=== PATIENT | female | born 1960 | race Caucasian/White ===

== ENCOUNTER 2020-12-15 06:00 | Outpatient (RCR) | payer BC, SELFPAY | END 2021-01-03 23:59 | disposition home or self-care (01) | LOC: TPT 06:00 | PROVIDERS: PCP Internal Medicine Cardiovascular Disease; Visit Provider Student in an Organized Health Care Education/Training Program | DX: Z47.89 Encounter for other orthopedic aftercare (principal) | CPT/HCPCS: 97110; 97140; 97162; G0283 ==

== ENCOUNTER 2021-01-04 06:00 | Outpatient (RCR) | payer BC, SELFPAY | END 2021-02-02 23:59 | disposition home or self-care (01) | LOC: TPT 06:00 | PROVIDERS: PCP Internal Medicine Cardiovascular Disease; Visit Provider Student in an Organized Health Care Education/Training Program | DX: Z47.89 Encounter for other orthopedic aftercare (principal) | CPT/HCPCS: 97032; 97110; 97140; G0283 ==

== ENCOUNTER 2021-02-03 06:00 | Outpatient (RCR) | payer BC, SELFPAY | END 2021-03-05 23:59 | disposition home or self-care (01) | LOC: TPT 06:00 | PROVIDERS: PCP Internal Medicine Cardiovascular Disease; Visit Provider Student in an Organized Health Care Education/Training Program | DX: Z47.89 Encounter for other orthopedic aftercare (principal) | CPT/HCPCS: 97032; 97110 ==

== ENCOUNTER → 2021-04-12 17:52 | Outpatient (BNVA) | payer BC, SELFPAY | PROVIDERS: PCP Internal Medicine Cardiovascular Disease; Visit Provider Family Medicine | DX: K21.9 Gastro-esophageal reflux disease without esophagitis (principal); F32.9 Major depressive disorder, single episode, unspecified; E03.9 Hypothyroidism, unspecified; I10 Essential (primary) hypertension | CPT/HCPCS: 80053; 80061; 84443; 85025 ==

== ENCOUNTER → 2021-05-15 08:45 | Outpatient (BNVA) | payer BC, SELFPAY | PROVIDERS: Visit Provider Family Medicine | DX: R30.0 Dysuria (principal); K21.9 Gastro-esophageal reflux disease without esophagitis; I10 Essential (primary) hypertension; F32.9 Major depressive disorder, single episode, unspecified; E03.9 Hypothyroidism, unspecified | CPT/HCPCS: 80053; 80061; 81003; 84443 ==

== ENCOUNTER 2022-01-14 17:30 | Emergency (ER) | payer BC, SELFPAY ==
[2022-01-14 17:31] VITALS: BP 122/87; PULSE 86; RESP 16; TEMP 36.6; O2SAT 99; BMI 29.2
[2022-01-14 17:40] VITALS: BP 128/90; PULSE 80; RESP 16; TEMP 36.6; O2SAT 99
--- NOTE | 2022-01-14 17:56 | ECG_ITS ---
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 Measurements Intervals [place] Rate: 79 P: 11 PA: 160 QRS: 19 QRSD: 80 T: -12 QT: 339 QTc: 389 Interpretive Statements SINUS RHYTHM POSSIBLE ANTERIOR MYOCARDIAL INFARCTION , PROBABLY OLD [30 ms Q WAVE IN V3/V4, OR R < 0.2 mV IN V4] POSSIBLE INFERIOR MYOCARDIAL INFARCTION , OF INDETERMINATE AGE [30 ms Q WAVE IN II/aVF] No previous ECG available for comparison Electronically Signed On 01-14-2022 18:28:18 CDT by Errol Porter M.D. [id number]
--- NOTE | 2022-01-14 17:58 | ED_ITS ---
HPI - General Adult General: Chief complaint: Abdominal Pain Stated complaint: abd pain and sick Time Seen by Provider: 01/14/22 17:56 History of Present Illness: Patient is a 61-year-old female with history of cholecystectomy, hysterectomy, chronic upper abdominal pain for the last 3 months presenting to the emergency room with concerns of worsening abdominal pain. Patient tells me that in the last 3-month, she has had multiple emergency room visits for ongoing midepigastric/left upper quadrant abdominal pain. Patient was scheduled for a EGD in March. Due to worsening pain this week, patient decided to come to the emergency room. Patient denies any nausea/vomiting but reports pain with p.o. intake. Patient denies any diarrhea melena medic easier. Patient has no complaints. Present time, patient is requesting to see if we can admit me to the hospital to get an EGD. Onset:chronic Duration:ongoing Location:home Severity:moderate Associated symptoms: Deny chest pain, dyspnea, nausea, rash, palpitations or vomiting Review of Systems Const: Denies: fever(s) or chills Eyes: Denies: change in vision ENMT: Denies: mouth pain Card: Denies: chest pain or palpitations Resp: Denies: dyspnea or non-productive cough GI: Reports: abdominal pain (+midepigastric and LUQ abd pain); Denies: nausea, vomiting or diarrhea : Denies: dysuria Musc: Denies: extremity pain Skin/Breast: Denies: rash or new lesions Neuro: Denies: weakness in extremities Psych: Reports: other (Normal mood) Paxton/Lymph: Denies: easy bruising PFSH ED PFSH: Medical History CAD (coronary atherosclerotic disease) Depression GERD (gastroesophageal reflux disease) HTN (hypertension) Hypothyroidism Surgical History Hx of neck surgery S/P cholecystectomy S/P coronary angioplasty S/P hysterectomy S/P sinus surgery Family History Mother CAD (coronary artery disease) Family/Other Stroke Hypertension Other Cancer Social History Smoking and tobacco status: never smoked Alcohol intake: never Marital status: Physical Exam Const: COMMON NORMALS: alert HENMT: COMMON NORMALS: atraumatic HEAD & SCALP: atraumatic MOUTH: moist mucous membranes not abnormal Eye: COMMON NORMALS: EOMs intact bilaterally and conjunctivae normal CONJUNCTIVA: Yes conjunctivae normal Neck/C-Spine: COMMON NORMALS: full ROM and supple Resp: COMMON NORMALS: normal respiratory effort and clear to auscultation bilaterally AUSCULTATION: clear to auscultation bilaterally Cardio: COMMON NORMALS: regular rate RATE: regular rate GI: COMMON NORMALS: Soft to palpation PALPATION: Yes Soft to palpation OTHER: + Mild epigastric and left lower quadrant abdominal tenderness palpation. NO guarding rebound, guarding, rigidity. No CVA tenderness to percussion. Neg Murp hy/Neg McBurney's point tenderness, no suprabupic tenderness to palpation. Extremity: COMMON NORMALS: full ROM Neuro: SENSORIUM/ORIENTATION: Yes alert MOTOR EXAM: No Abnormal motor strength present and Other motor observations present (no focal motor deficits) Psych: COMMON NORMALS: speech normal SPEECH: Yes normal speech MOOD & AFFECT: Yes euthymic mood Course Vital Signs: Vital signs: Vital Signs Temperature 98 F 01/14/22 17:40 Pulse Rate 80 01/14/22 17:40 Respiratory Rate 17 01/14/22 19:55 Blood Pressure 139/85 01/14/22 19:55 Pulse Oximetry 97 01/14/22 19:55 Oxygen Delivery Me thod 01/14/22 19:55 MDM - General Adult Medical Decision Making Patient is a 61-year-old female with history of cholecystectomy, hysterectomy, chronic upper abdominal pain for the last 3 months presenting to the emergency room with concerns of worsening abdominal pain. On physical exam, patient has mild tenderness palpation left upper quadrant midepigastric area. Lab work showing a 10.7 today. Sodium 134. Lab within normal limit. Troponin within normal. EKG is nonischemic. Patient complains to have intermittent abdominal pain that improved with GI cocktail and opiate medication. No suspicion for other acute intra-abdominal pathology including SBO, biliary pathology, appendicitis, diverticulitis, or other emergent condition requiring surgery. Given the fact the patient has had a recent CT evaluation patient request for EGD scope. I discused case with Dr. Tacos Colmenares who will have patient seen clinic for further evaluation. Rx Protonix PRN abd pain, maalox/pepcid PRN dyspepsia, and zofran PRN nausea/vomiting Disposition: Discharge. Patient counseled regarding diagnostic impression, treatment plan. Patient given ED strict return precautions to return for continuation, worsening, or development of new symptoms. Instructed to f/u w/ PCP regarding symptoms today. Patient verbalized understanding. Lab Data : 01/14/22 18:00 01/14/22 18:00 Laboratory Results WBC 10.7 10^3/uL (4.0-10.0) H 01/14/22 18:00 RBC 5.19 10^6/uL (4.1-5.3) 01/14/22 18:00 Hgb 14.7 g/dL (11.5-15.3) 01/14/22 18:00 Hct 45.3 % (37.0-47.0) 01/14/22 18:00 MCV 87.3 fl (81-99) 01/14/22 18:00 MCH 28.3 pg (28.0-34.0) 01/14/22 18:00 MCHC 32.5 g/dL (30.0-36.0) 01/14/22 18:00 RDW 13.3 % (12.1-15.1) 01/14/22 18:00 Plt Count 322 10^3/cmm (130-400) 01/14/22 18:00 MPV 10.0 fL (7.4-10.4) 01/14/22 18:00 Neut % (Auto) 65.0 % 01/14/22 18:00 Lymph % (Auto) 28.7 % 01/14/22 18:00 [place] % (Auto) 4.6 % 01/14/22 18:00 Eos % (Auto) 0.9 % 01/14/22 18:00 Baso % (Auto) 0.7 % 01/14/22 18:00 Neut # (Auto) 6.97 10^3/uL (1.8-7.7) 01/14/22 18:00 Lymph # (Auto) 3.1 10^3/uL (0.8-4.8) 01/14/22 18:00 [place] # (Auto) 0.5 10^3/uL (0.2-0.9) 01/14/22 18:00 Eos # (Auto) 0.1 10^3/uL (0.0-0.8) 01/14/22 18:00 Baso # (Auto) 0.1 10^3/uL (0.0-0.1) 01/14/22 18:00 Nucleated RBC % (auto) 0 % 01/14/22 18:00 Nucleated RBCs # 0.0 /100WBC 01/14/22 18:00 Sodium 134 mmol/L (136-145) L 01/14/22 18:00 Potassium 3.9 mmol/L (3.5-5.1) 01/14/22 18:00 Chloride 94 mmol/L (98-107) L 01/14/22 18:00 Carbon Dioxide 29 mmol/L (22-29) 01/14/22 18:00 Anion Gap 14.9 (5-19) 01/14/22 18:00 BUN 11 mg/dL (8-23) 01/14/22 18:00 Creatinine 0.7 mg/dL (0.5-0.9) 01/14/22 18:00 GFR Calculation 85.4 mL/min (90-130) L 01/14/22 18:00 Glucose 117 mg/dL (65-115) H 01/14/22 18:00 Calculated Osmolality 278 mOsm/kg (285-295) L 01/14/22 18:00 Calcium 9.6 mg/dL (8.5-10.5) 01/14/22 18:00 Total Bilirubin 0.4 mg/dL (0.15-1.2) 01/14/22 18:00 AST 27 U/L (0-32) 01/14/22 18:00 ALT 40 U/L (0-33) H 01/14/22 18:00 Alkaline Phosphatase 94 U/L (35-105) 01/14/22 18:00 Troponin T Baseline 6 ng/L (0-10) 01/14/22 18:00 Troponin T 120 Minute 6.27 ng/L (0-10) 01/14/22 19:55 Delta Troponin T 0.27 ABS# (0-10) 01/14/22 19:55 Total Protein 7.2 g/dL (6.6-8.7) 01/14/22 18:00 Albumin 4.4 g/dL (3.5-5.2) 01/14/22 18:00 Globulin 2.8 g/dL (1.3-4.6) 01/14/22 18:00 Lipase 52 U/L (13-60) 01/14/22 18:00 Urine Color Yellow (Yellow) 01/14/22 19:57 Urine Appearance Clear (CLEAR) 01/14/22 19:57 Urine pH 7 (5-7) 01/14/22 19:57 Ur Specific [place] 1.005 (1.005-1.030) 01/14/22 19:57 Urine Protein Neg (Negative) 01/14/22 19:57 Urine Glucose (UA) Norm (Normal) 01/14/22 19:57 Urine Ketones Negative (Negative) 01/14/22 19:57 Urine Blood Neg (Negative) 01/14/22 19:57 Urine Nitrate Negative (Negative) 01/14/22 19:57 Urine Bilirubin Neg (Negative) 01/14/22 19:57 Urine Urobilinogen Neg mg/dL (Negative) 01/14/22 19:57 Ur Leukocyte Esterase Negative (Negative) 01/14/22 19:57 Discharge Plan Discharge Patient Disposition: Home Clinical Impression: Abdominal pain Condition: Stable Prescriptions: New Pepcid 20 mg tablet 20 mg PO BID PRN (Reason: abdominal pain) 10 Days Qty: 20 0RF ondansetron 4 mg tablet,disintegrating 4 mg PO TID PRN (Reason: nausea and vomiting) 4 Days Qty: 12 0RF Maalox Advanced 1,000-60 mg tablet,chewable 1 tab PO TID PRN (Reason: abdominal pain) 7 Days Qty: 21 0RF Protonix [address] for susp in packet 40 mg PO DAILY 42 Days Qty: 42 0RF Protonix 40 mg tablet,delayed release (DR/EC) 40 mg PO DAILY 42 Days Qty: 42 0RF acetaminophen-codeine 300-30 mg tablet 1 tab PO Q8H PRN (Reason: pain) Qty: 9 0RF No Action aspirin [Adult Low Dose Aspirin] 81 mg tablet,delayed release (DR/EC) 81 mg PO DAILY levetiracetam [Keppra] 500 mg tablet 500 mg PO DAILY omeprazole 20 mg capsule,delayed release(DR/EC) 20 mg PO DAILY levothyroxine 112 mcg tablet 112 mcg PO DAILY nitroglycerin [Nitrostat] 0.4 mg tablet, sublingual 0.4 mg SUBLINGUAL Q5M PRN (Reason: chest pain) Qty: 30 3RF hydrocodone-acetaminophen 10-325 mg tablet 1 tab PO Q8H PRN (Reason: pain) 10 Days Qty: 30 0RF triamterene-hydrochlorothiazid 37.5-25 mg tablet 1 tab PO QAM Qty: 30 3RF cyclobenzaprine 10 mg tablet See Rx Instructions .ROUTE .COMPLEX Qty: 30 3RF Dose Instruction: TAKE ONE TABLET BY MOUTH EVERY 8 HOURS Rx Instructions: TAKE ONE TABLET BY MOUTH EVERY night. alprazolam [Xanax] 1 mg tablet 1 mg PO BID Qty: 60 0RF escitalopram oxalate [Lexapro] 10 mg tablet 10 mg PO DAILY Qty: 30 2RF Discharge Orders: Discharge ED (Routine); Ordered 01/14/22 Ordered By: Palmer Griffin Discharge Diet: Advance as tolerated Discharge Activity: Increase activity as tolerated Patient Instructions: Abdominal Pain (ED) Activity Restrictions/Additional Instructions: Please come back if you have any worsening abdominal pain, fever or chills, nausea or vomiting, diarrhea, blood in the stool, inability hold down liquid or solids, or any new concerning complaints. Our supervisor case loading will have you follow-up with Dr. Tacos Colmenares in the next few days. You would be expected to have a phone call with our supervisor case loading who will put you on the schedule. You can expect a call from us in the next 2-3 days. If you don't hear from us, call us back in the emergency room at [phone]. Clinic information: [address], [place] [address] Coding Level of Care Code ED Windows Mobile Developer for Lauryng Fwd Exam Comprehensive
[2022-01-14 18:11] LABS: Basophils # 0.1 10^3/uL (0.0-0.1); Basophils % 0.7 %; Eosinophils # 0.1 10^3/uL (0.0-0.8); Eosinophils % 0.9 %; Hematocrit 45.3 % (37.0-47.0); Hemoglobin 14.7 g/dL (11.5-15.3); Lymphocytes # 3.1 10^3/uL (0.8-4.8); Lymphocytes % 28.7 %; Mean Corpuscular HGB Conc 32.5 g/dL (30.0-36.0); Mean Corpuscular Hemoglobin 28.3 pg (28.0-34.0); Mean Corpuscular Volume 87.3 fl (81-99); Monocytes # 0.5 10^3/uL (0.2-0.9); Monocytes % 4.6 %; Neutrophils # 6.97 10^3/uL (1.8-7.7); Nucleated Red Blood Cells % 0 %; Platelet Count 322 10^3/cmm (130-400); Red Blood Count 5.19 10^6/uL (4.1-5.3); Red Cell Distribution Width 13.3 % (12.1-15.1); White Blood Count 10.7 10^3/uL (4.0-10.0)
[2022-01-14] MEDS: lidocaine 2% viscous 15 ML, aluminum-mag hydrox-simethicon 30 ML, sucralfate oral liq 1 GM PO (18:20)
[2022-01-14] MEDS: sodium chloride 0.9% 1,000 ML 999 ML IV (18:21)
[2022-01-14 18:34] LABS: Troponin(5th) Baseline 6 ng/L (0-10)
[2022-01-14 18:35] LABS: Alanine Aminotransferase 40 U/L (0-33); Albumin Level 4.4 g/dL (3.5-5.2); Alkaline Phosphatase 94 U/L (35-105); Anion Gap 14.9 (5-19); Aspartate Amino Transferase 27 U/L (0-32); Blood Urea Nitrogen 11 mg/dL (8-23); Calcium 9.6 mg/dL (8.5-10.5); Carbon Dioxide 29 mmol/L (22-29); Chloride 94 mmol/L (98-107); Creatinine Clr Calc Pharmacy 85.8964; Globulin 2.8 g/dL (1.3-4.6); Glomerular Filtration Rate 85.4 mL/min (90-130); Glucose 117 mg/dL (65-115); Lipase 52 U/L (13-60); Osmolality Calculated 278 mOsm/kg (285-295); Potassium 3.9 mmol/L (3.5-5.1); Sodium 134 mmol/L (136-145); Total Bilirubin 0.4 mg/dL (0.15-1.2); Total Protein 7.2 g/dL (6.6-8.7)
[2022-01-14 18:56] VITALS: RESP 18
[2022-01-14] MEDS: pantoprazole 40 mg SDV 80 MG IVP (18:56)
[2022-01-14] MEDS: morphine 4 mg/mL SDV 1 mL IVP (18:56)
--- NOTE | 2022-01-14 19:49 | PC.NURSE ---
patient assisted to bedside commode, call light in reach, nad. family at bedside to assist.
[2022-01-14 19:55] VITALS: BP 139/85; RESP 17; O2SAT 97
--- NOTE | 2022-01-14 19:56 | ECG_ITS ---
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 Measurements Intervals [place] Rate: 67 P: 26 ME: 156 QRS: 34 QRSD: 83 T: -18 QT: 363 QTc: 383 Interpretive Statements SINUS RHYTHM WITH SINUS ARRHYTHMIA POSSIBLE INFERIOR MYOCARDIAL INFARCTION , OF INDETERMINATE AGE [30 ms Q WAVE IN II/aVF] Compared to ECG 01/14/2022 18:11:42 No significant changes Electronically Signed On 01-15-2022 18:14:07 CDT by Errol Porter M.D. [id number]
[2022-01-14 20:08] LABS: Add Urine Microscopic? NO; Charge for UA Resulting for Rev
[2022-01-14 20:21] LABS: Bilirubin Urine Neg (Negative); Blood Urine Neg (Negative); Glucose Urine UA Norm (Normal); Ketones Urine Negative (Negative); Leukocyte Esterase Urine Negative (Negative); Nitrate Urine Negative (Negative); Protein Urine Neg (Negative); Specific Gravity, Urine 1.005 (1.005-1.030); Urine Appearance Clear (CLEAR); Urine Color Yellow (Yellow); Urobilinogen Urine Neg (Negative); pH Urine 7 (5-7)
[2022-01-14 20:21] LABS: Troponin 5 2HR 6.27 ng/L (0-10)
[2022-01-14 20:31] LABS: Troponin 5 2HR Delta 0.27 ABS# (0-10)
[2022-01-14 20:54] VITALS: RESP 19; O2SAT 98
[2022-01-14] MEDS: HYDROmorphone 1 mg/mL INJ 1 mL 0.5 MG IVP (20:54)
[2022-01-14 21:01] VITALS: PULSE 97; RESP 16; O2SAT 98
--- NOTE | 2022-01-15 10:08 | DCPLANNER ---
Addendum entered by Marilin Choudhury 01/22/22 15:13: Patient had follow up appointment with general surgery - patient did attend appointment. Addendum entered by Marilin Choudhury 01/17/22 08:33: Patient has an appointment scheduled for Wednesday, January 19, 2022 at 9:[address] Colmenares at General Surgery. Clinic will call patient with appointment information. Original Note: tax accounting manager had message to schedule a follow up appointment for patient with general surgery. tax accounting manager sent patients information to the front office staff at general surgery. Patients information will be printed and reviewed. Clinic will call patient with appointment information.
== END 2022-01-14 21:02 | disposition home or self-care (01) ==
PROVIDERS: Emergency Provider Emergency Medicine
DX: R10.9 Unspecified abdominal pain (principal); Z79.82 Long term (current) use of aspirin
CPT/HCPCS: 80053; 81003; 83690; 84484; 85025; 93005; 96361; 96374; 96375; 99285; C9113; J1170; J2270; J7030

== ENCOUNTER 2022-01-22 14:04 | Outpatient (CLI) | payer BC, SELFPAY | END 2022-01-22 14:05 | disposition home or self-care (01) | LOC: LAB 14:05 | PROVIDERS: Visit Provider Surgery | DX: R10.13 Epigastric pain (principal) | CPT/HCPCS: 87338 ==

== ENCOUNTER 2022-01-28 12:04 | Inpatient (IN) | payer BC, SELFPAY ==
[2022-01-28 12:05] VITALS: BP 141/89; PULSE 100; RESP 16; TEMP 36.5; O2SAT 96; BMI 29.2
--- NOTE | 2022-01-28 12:12 | ED.C_ITS ---
HPI - Psych General: Chief Complaint: Psychiatric Symptoms Stated Complaint: MHE Time Seen by Provider: 01/28/22 12:12 History of Present Illness: Ms. Mora is a 61-year-old lady with history of chronic abdominal pain, CAD, hypertension, thyroid disorder who presents to the emergency department due to depression with suicidal ideation. Does have a longstanding history of depression however this has been worse since summer when her typical medication regimen seem to stop working. Since that time she has had difficulty controlling her depression despite medication changes. She r eports worsening depression associated with tearfulness, suicidal thoughts with a plan, and associated appetite and sleep difficulties. Intensity symptoms is moderate to severe. Course is worsened over the past week. No other specific changes in health, exacerbating, or alleviating factors identified. Onset (ago): week(s) Duration: getting worse History of same: Yes Exacerbating factors: medication Associated psychiatric symptoms: depression and suicidal ideation If self harm: admits thoughts of self harm Review of Systems General: Reports: 10 or more systems reviewed and unremarkable except in HPI and below PFSH ED PFSH: Medical History CAD (coronary atherosclerotic disease) Depression GERD (gastroesophageal reflux disease) HTN (hypertension) Hypothyroidism Surgical History Hx of neck surgery S/P cholecystectomy S/P coronary angioplasty S/P hysterectomy S/P sinus surgery Family History Mother CAD (coronary artery disease) Family/Other Stroke Hypertension Other Cancer Social History Smoking and tobacco status: former smoker Alcohol intake: never Marital status: Physical Exam Const: COMMON NORMALS: alert GENERAL APPEARANCE: cooperative and well developed HENMT: COMMON NORMALS: normocephalic and atraumatic HEAD & SCALP: normocephalic and atraumatic Eye: COMMON NORMALS: conjunctivae normal CONJUNCTIVA: Yes conjunctivae normal SCLERA: sclerae normal Neck/C-Spine: COMMON NORMALS: supple GENERAL: Yes trachea midline Resp: COMMON NORMALS: normal respiratory effort EFFORT & INSPECTION: Yes able to speak in complete sentences Cardio: COMMON NORMALS: regular rate and regular rhythm RATE: regular rate RHYTHM: regular rhythm GI: COMMON NORMALS: Soft to palpation PALPATION: Yes Soft to palpation and No Tenderness to palpation present (GI) PERCUSSION: normal to percussion Extremity: GENERAL: Yes normal exam except as noted and No edema Neuro: COMMON NORMALS: moves all extremities SENSORIUM/ORIENTATION: Yes alert and No Orientation impaired Psych: COMMON NORMALS: mental status grossly normal and Normal thought process present ATTITUDE: Yes Withdrawn affect present MOOD & AFFECT: Yes depressed mood and Yes tearful THOUGHT PROCESS: Normal thought process present THOUGHT CONTENT: Yes Suicidality present Course Vital Signs: Vital signs: Vital Signs Temperature 98 F 02/01/22 14:57 Pulse Rate 84 02/01/22 14:57 Respiratory Rate 18 02/01/22 14:57 Blood Pressure 119/80 02/01/22 14:57 Pulse Oximetry 90 02/01/22 14:57 Oxygen Delivery Me thod 02/01/22 14:00 MDM - Psych Medical Decision Making 61-year-old lady presenting with psychiatric symptoms. Laboratory studies reviewed and no acute abnormality requiring intervention. Based on ED evaluation at this point there is no obvious condition that would preclude the patient from inpatient management of psychiatric concerns. Patient to be admitted to neuropsychiatric unit for further management. Medical Records I reviewed the patient's medical records. Lab Data I reviewed the patient's lab results. : 01/28/22 13:00 01/28/22 13:00 Laboratory Results WBC 9.9 10^3/uL (4.0-10.0) 01/28/22 13:00 RBC 5.12 10^6/uL (4.1-5.3) 01/28/22 13:00 Hgb 14.7 g/dL (11.5-15.3) 01/28/22 13:00 Hct 45.2 % (37.0-47.0) 01/28/22 13:00 MCV 88.3 fl (81-99) 01/28/22 13:00 MCH 28.7 pg (28.0-34.0) 01/28/22 13:00 MCHC 32.5 g/dL (30.0-36.0) 01/28/22 13:00 RDW 13.2 % (12.1-15.1) 01/28/22 13:00 Plt Count 325 10^3/cmm (130-400) 01/28/22 13:00 MPV 10.0 fL (7.4-10.4) 01/28/22 13:00 Neut % (Auto) 64.9 % 01/28/22 13:00 Lymph % (Auto) 26.8 % 01/28/22 13:00 [place] % (Auto) 6.2 % 01/28/22 13:00 Eos % (Auto) 1.2 % 01/28/22 13:00 Baso % (Auto) 0.6 % 01/28/22 13:00 Neut # (Auto) 6.43 10^3/uL (1.8-7.7) 01/28/22 13:00 Lymph # (Auto) 2.7 10^3/uL (0.8-4.8) 01/28/22 13:00 [place] # (Auto) 0.6 10^3/uL (0.2-0.9) 01/28/22 13:00 Eos # (Auto) 0.1 10^3/uL (0.0-0.8) 01/28/22 13:00 Baso # (Auto) 0.1 10^3/uL (0.0-0.1) 01/28/22 13:00 Nucleated RBC % (auto) 0 % 01/28/22 13:00 Nucleated RBCs # 0.0 /100WBC 01/28/22 13:00 Sodium 139 mmol/L (136-145) 01/28/22 13:00 Potassium 3.7 mmol/L (3.5-5.1) 01/28/22 13:00 Chloride 98 mmol/L (98-107) 01/28/22 13:00 Carbon Dioxide 30 mmol/L (22-29) H 01/28/22 13:00 Anion Gap 14.7 (5-19) 01/28/22 13:00 BUN 10 mg/dL (8-23) 01/28/22 13:00 Creatinine 0.9 mg/dL (0.5-0.9) 01/28/22 13:00 GFR Calculation 63.9 mL/min (90-130) L 01/28/22 13:00 Glucose 97 mg/dL (65-115) 01/28/22 13:00 Calculated Osmolality 287 mOsm/kg (285-295) 01/28/22 13:00 Calcium 9.3 mg/dL (8.5-10.5) 01/28/22 13:00 Total Bilirubin 0.3 mg/dL (0.15-1.2) 01/28/22 13:00 AST 24 U/L (0-32) 01/28/22 13:00 ALT 34 U/L (0-33) H 01/28/22 13:00 Alkaline Phosphatase 96 U/L (35-105) 01/28/22 13:00 Total Protein 7.5 g/dL (6.6-8.7) 01/28/22 13:00 Albumin 4.4 g/dL (3.5-5.2) 01/28/22 13:00 Globulin 3.1 g/dL (1.3-4.6) 01/28/22 13:00 TSH 1.49 uIU/mL (0.27-4.20) 01/28/22 13:00 Salicylates 1.1 mg/dL (3-10) L 01/28/22 13:00 Urine Opiates Screen Negative ng/mL (Negative) 01/28/22 12:52 Acetaminophen < 5.0 ug/mL (10-30) L 01/28/22 13:00 Ur Barbiturates Screen Negative ng/mL (Negative) 01/28/22 12:52 Ur Phencyclidine Scrn Negative ng/mL (Negative) 01/28/22 12:52 Ur Amphetamines Screen Negative ng/mL (Negative) 01/28/22 12:52 U Benzodiazepines Scrn Positive ng/mL (Negative) H 01/28/22 12:52 Urine Cocaine Screen Negative ng/mL (Negative) 01/28/22 12:52 U Marijuana (THC) Screen Negative ng/mL (Negative) 01/28/22 12:52 Ethyl Alcohol < 10 mg/dL (0-10) 01/28/22 13:00 Discharge Plan Discharge Patient Disposition: Admitted As Inpatient Admit Provider: Satnam Hernandez Clinical Impression: Depression, Suicidal ideation Condition: Stable Discharge Diet: Advance as tolerated Discharge Activity: Resume usual activity Coding Level of Care Code ED Music Ministries Director for Loreta Fwd Exam Comprehensive
--- NOTE | 2022-01-28 12:49 | PC.NURSE ---
Dr. Lau requested nurse to wait on changing patient into paper scrubs at this time.
[2022-01-28 13:07] LABS: Basophils # 0.1 10^3/uL (0.0-0.1); Basophils % 0.6 %; Eosinophils # 0.1 10^3/uL (0.0-0.8); Eosinophils % 1.2 %; Hematocrit 45.2 % (37.0-47.0); Hemoglobin 14.7 g/dL (11.5-15.3); Lymphocytes # 2.7 10^3/uL (0.8-4.8); Lymphocytes % 26.8 %; Mean Corpuscular HGB Conc 32.5 g/dL (30.0-36.0); Mean Corpuscular Hemoglobin 28.7 pg (28.0-34.0); Mean Corpuscular Volume 88.3 fl (81-99); Monocytes # 0.6 10^3/uL (0.2-0.9); Monocytes % 6.2 %; Neutrophils # 6.43 10^3/uL (1.8-7.7); Neutrophils % 64.9 %; Nucleated Red Blood Cells % 0 %; Platelet Count 325 10^3/cmm (130-400); Red Blood Count 5.12 10^6/uL (4.1-5.3); Red Cell Distribution Width 13.2 % (12.1-15.1); White Blood Count 9.9 10^3/uL (4.0-10.0)
[2022-01-28 13:09] LABS: Amphetamines Screen Urine Negative (Negative); Barbiturates Screen Urine Negative (Negative); Benzodiazepines Screen Urine Positive (Negative); Cocaine Screen Urine Negative (Negative); Opiate Screen Urine Negative (Negative); PCP Screen Urine Negative (Negative); THC Screen Urine Negative (Negative)
[2022-01-28 13:42] LABS: Acetaminophen < 5.0 ug/mL (10-30); Alanine Aminotransferase 34 U/L (0-33); Albumin Level 4.4 g/dL (3.5-5.2); Alcohol Level < 10 mg/dL (0-10); Alkaline Phosphatase 96 U/L (35-105); Anion Gap 14.7 (5-19); Aspartate Amino Transferase 24 U/L (0-32); Blood Urea Nitrogen 10 mg/dL (8-23); Calcium 9.3 mg/dL (8.5-10.5); Carbon Dioxide 30 mmol/L (22-29); Chloride 98 mmol/L (98-107); Globulin 3.1 g/dL (1.3-4.6); Glomerular Filtration Rate 63.9 mL/min (90-130); Glucose 97 mg/dL (65-115); Osmolality Calculated 287 mOsm/kg (285-295); Potassium 3.7 mmol/L (3.5-5.1); Salicylate 1.1 mg/dL (3-10); Sodium 139 mmol/L (136-145); Thyroid Stimulating Hormone 1.49 uIU/mL (0.27-4.20); Total Bilirubin 0.3 mg/dL (0.15-1.2); Total Protein 7.5 g/dL (6.6-8.7)
[2022-01-28] MEDS: acetaminophen 500 mg Tablet 1000 MG PO (14:06)
[2022-01-28] MEDS: ondansetron 4 MG Tablet PO (14:57)
[2022-01-28 15:10] VITALS: BP 115/86; PULSE 76; RESP 16; O2SAT 97
[2022-01-28] MEDS: LORazepam 0.5 mg Tablet PO (15:12)
[2022-01-28] MEDS: promethazine 25 mg/mL SDV 1 mL IM (15:12)
[2022-01-28 15:40] VITALS: BP 126/84; PULSE 77; RESP 16; TEMP 36.6; O2SAT 100
[2022-01-28] MEDS: pantoprazole DR 40 mg Tablet PO (17:30)
[2022-01-28] MEDS: alum-mag-hydroxide-sime 30 mL UDC PO (17:30)
[2022-01-28] MEDS: duloxetine 20 mg Capsule PO ×2 (17:30→20:43)
[2022-01-28] MEDS: levETIRAcetam 500 mg Tablet PO (17:30)
[2022-01-28] MEDS: BuSPIRONE 10 mg Tablet 5 MG PO (17:30)
[2022-01-28 20:02] VITALS: BP 121/73; PULSE 75; RESP 14; TEMP 36.7; O2SAT 97
[2022-01-28] MEDS: acetaminophen 325 mg Tablet 650 MG PO (20:43)
[2022-01-28] MEDS: hyDROXYzine 25 mg Capsule 50 MG PO (20:43)
[2022-01-28] MEDS: trazodone 50 mg Tablet PO ×2 (20:43→22:10)
[2022-01-28] MEDS: OLANZapine 5 mg ODT PO (23:36)
[2022-01-29 06:00] VITALS: BP 108/56; PULSE 75; RESP 14; TEMP 36.6; O2SAT 96
[2022-01-29] MEDS: alum-mag-hydroxide-sime 30 mL UDC PO ×3 (08:18→17:15)
[2022-01-29] MEDS: levETIRAcetam 500 mg Tablet PO ×2 (08:18→17:15)
[2022-01-29] MEDS: pantoprazole DR 40 mg Tablet PO ×2 (08:18→17:15)
[2022-01-29] MEDS: BuSPIRONE 10 mg Tablet 5 MG PO (08:18)
[2022-01-29] MEDS: levothyroxine 112 mcg Tablet PO (08:18)
[2022-01-29] MEDS: duloxetine 20 mg Capsule PO ×3 (08:18→20:43)
[2022-01-29] MEDS: hyDROXYzine 25 mg Capsule 50 MG PO ×2 (08:20→15:08)
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
[2022-01-29] MEDS: docusate sodium 100 mg Capsule PO (13:30)
[2022-01-29 14:00] VITALS: BP 100/76; PULSE 108; RESP 18; TEMP 36.6; O2SAT 95
[2022-01-29] MEDS: CLONazepam 0.5 mg Tablet PO (17:15)
[2022-01-29 20:24] VITALS: BP 102/75; PULSE 96; RESP 18; TEMP 36.8; O2SAT 98
[2022-01-29] MEDS: OLANZapine 5 mg ODT PO (20:43)
[2022-01-29] MEDS: trazodone 50 mg Tablet PO (22:34)
[2022-01-30 06:00] VITALS: BP 104/65; PULSE 84; RESP 16; TEMP 36.7; O2SAT 96
[2022-01-30] MEDS: CLONazepam 0.5 mg Tablet PO ×2 (08:07→17:17)
[2022-01-30] MEDS: levothyroxine 112 mcg Tablet PO (08:07)
[2022-01-30] MEDS: pantoprazole DR 40 mg Tablet PO ×2 (08:07→17:17)
[2022-01-30] MEDS: levETIRAcetam 500 mg Tablet PO ×2 (08:07→17:17)
[2022-01-30] MEDS: duloxetine 20 mg Capsule PO ×2 (08:07→15:07)
[2022-01-30] MEDS: alum-mag-hydroxide-sime 30 mL UDC PO (08:08)
[2022-01-30 14:00] VITALS: BP 111/75; PULSE 92; RESP 17; TEMP 36.8; O2SAT 99
--- NOTE | 2022-01-30 17:34 | W.PM.NPUPNS ---
Subjective NPU Subjective: Patient is 61-year-old white female admitted with suicidal ideation along with major depressive disorder and generalized anxiety disorder. Patient had reported a past history of seizures. She had reported multiple previous medication trials. She had reported that she had felt more anxious on higher doses of Cymbalta but reported some relief of pain with a lower dose of Cymbalta. Patient had reported continued problems with not being able to shut her mind off at night. She reports continued chronic worry with inabilities to fall asleep and stay asleep. Patient reports that she is willing to consider psychotherapy. She continued to report infrequent thoughts of hurting herself and reported continued access to a gun in the home. Mental Status Exam MSE Comments: She is a casually dressed white female who appeared her stated age. She had intermittent eye contact. There was no evidence of any abnormal involuntary motor movements tics or tremors appreciated. Her mood was described as depressed. Her affect was mood congruent and restricted in range with significant psychomotor retardation. Her speech was slow but steady with normal prosody. Her thought process was linear with some continued perseveration regarding her medications. Her thought content showed no evidence of active homicidal ideation with active suicidal ideation with no active plan currently Her attention span appeared fair her recent and remote memory appeared intact on examination. She was alert and oriented to person place and time. Her impulse control appeared poor. Her insight was limited. Her judgment appeared poor. She did not appear to be responding to internal stimuli. there was no clear evidence of delusional thinking. Vitals/I&O/Wt Last Vital Signs Temp 98.3 F 01/30/22 14:00 Pulse 92 01/30/22 14:00 Resp 17 01/30/22 14:00 BP 111/75 01/30/22 14:00 Pulse Ox 99 01/30/22 14:00 O2 Del Method 01/29/22 14:00 Data NPU : 01/28/22 13:00 01/28/22 13:00 A&P Assessment and plan (1) Major depressive disorder, severe: (2) Generalized anxiety disorder: (3) Suicidal ideation: (4) Depression: (5) HTN (hypertension): (6) CAD (coronary atherosclerotic disease): (7) Hypothyroidism: Plan Patient is a 61-year-old white female with continued evidence of major depressive disorder and generalized anxiety disorder who presents with suicidal ideation and a plan with no active outpatient follow-up with a psychiatrist or psychotherapist. Patient will continue to require acute psychiatric hospitalization with likely changes in medications. 1.? Continue klonopin .5mg bid, Reduce cymbalta 30mg daily, and start paxil 10mg at night. 2.? Encourage individual, group and milieu therapy. CBT recommendation. 3.? Continue q-15 minute check for safety 4.? Recommend sober living treatment at the highest level of care to which the patient is willing to commit. Involuntary Hold Information 96 Hour Hold: 96 Hour Involuntary Admission: No Attestations NPU Medical Necessity Statement*: Inpatient hospitalization is medically necessary and the clinically appropriate intervention at this time. We will monitor medications and make changes as indicated. Patient will be in the hospital for over two midnights. Likely length of stay is three to five days. Coding Level of Care Code Established Pt Acute Emergency Department Physician for Loreta Rivero Patient Type Established History Problem Focused Exam Problem Focused Medical Decision Making Straight Forward Diagnoses Major depressive disorder, severe F32.2 Generalized anxiety disorder F41.1 Suicidal ideation R45.851 Depression F32.9 HTN (hypertension) I10 CAD (coronary atherosclerotic disease) I25.10 Hypothyroidism E03.9
[2022-01-30] MEDS: PARoxetine 20 mg Tablet 10 MG PO (18:27)
[2022-01-30] MEDS: trazodone 50 mg Tablet PO ×2 (20:18→21:52)
[2022-01-30] MEDS: OLANZapine 5 mg ODT PO (20:18)
[2022-01-30] MEDS: hyDROXYzine 25 mg Capsule 50 MG PO (21:52)
[2022-01-30 22:00] VITALS: BP 112/70; PULSE 85; RESP 20; TEMP 36.8; O2SAT 96
[2022-01-31 06:00] VITALS: BP 113/72; PULSE 82; RESP 18; TEMP 36.6; O2SAT 97
[2022-01-31] MEDS: duloxetine 30 mg Capsule PO (06:05)
[2022-01-31] MEDS: levothyroxine 112 mcg Tablet PO (08:13)
[2022-01-31] MEDS: pantoprazole DR 40 mg Tablet PO ×2 (08:13→17:46)
[2022-01-31] MEDS: levETIRAcetam 500 mg Tablet PO ×2 (08:13→17:46)
[2022-01-31] MEDS: CLONazepam 0.5 mg Tablet PO ×2 (08:13→17:46)
[2022-01-31 14:00] VITALS: BP 120/75; PULSE 86; RESP 17; TEMP 37.1; O2SAT 96
--- NOTE | 2022-01-31 15:46 | W.PM.NPUPNS ---
Subjective NPU Subjective: Patient is 61-year-old white female admitted with suicidal ideation along with major depressive disorder and generalized anxiety disorder. Patient had reported a past history of seizures. She had reported multiple previous medication trials. She continued to remain anxious on the inpatient unit. She reports that she had less suicidal thoughts. She reported feeling optimistic about a retrial on her Paxil. She reported that she was excessively sensitive to medications and stated that she would like her regimen simplified. She continue to report excessive worry that she may have benzodiazepine withdrawal despite reporting only the use of Xanax 0.5 to 1 mg at night. She continues to report depressed mood and low motivation. She reports a significant decline in her her mood over the last several months. She reports that she wished to continue on Cymbalta at 30 mg as it helped with her burning mouth syndrome. She reported having difficulties with managing her worry and states that she cannot shut her mind off at night to fall asleep.. Mental Status Exam MSE Comments: She is a casually dressed white female who appeared her stated age. She had intermittent eye contact. There was no evidence of any abnormal involuntary motor movements tics or tremors appreciated. Her mood was described as depressed. Her affect was mood congruent and restricted in range with significant psychomotor retardation. Her speech was slow but steady with normal prosody. Her thought process was linear with some continued perseveration regarding her medications. Her thought content showed no evidence of active homicidal ideation and no active suicidal ideation with no active plan currently. She perseverated on her medication issues. Her attention span appeared fair. her recent and remote memory appeared intact on examination. She was alert and oriented to person place and time. Her impulse control appeared poor. Her insight was limited. Her judgment appeared poor. She did not appear to be responding to internal stimuli. There was no clear evidence of delusional thinking. Vitals/I&O/Wt Last Vital Signs Temp 97.8 F 01/31/22 06:00 Pulse 82 01/31/22 06:00 Resp 18 01/31/22 06:00 BP 113/72 01/31/22 06:00 Pulse Ox 97 01/31/22 06:00 O2 Del Method 01/31/22 06:00 Data NPU : 01/28/22 13:00 01/28/22 13:00 A&P Assessment and plan (1) Major depressive disorder, severe: (2) Generalized anxiety disorder: (3) Suicidal ideation: (4) Depression: (5) HTN (hypertension): (6) CAD (coronary atherosclerotic disease): (7) Hypothyroidism: Plan Patient is a 61-year-old white female with continued evidence of major depressive disorder and generalized anxiety disorder who presents with suicidal ideation and a plan with no active outpatient follow-up with a psychiatrist or psychotherapist. Patient will continue to require acute psychiatric hospitalization with likely changes in medications. 1.? Continue klonopin .5mg bid, Continue cymbalta 30mg daily, and increase Paxil to 20mg at night. Add seroquel 50mg at night adjunctively for treatment of depression. 2.? Encourage individual, group and milieu therapy. CBT recommendation. 3.? Continue q-15 minute check for safety 4.? Recommend sober living treatment at the highest level of care to which the patient is willing to commit. Involuntary Hold Information 96 Hour Hold: 96 Hour Involuntary Admission: No Attestations NPU Medical Necessity Statement*: Inpatient hospitalization is medically necessary and the clinically appropriate intervention at this time. We will monitor medications with likely length of stay is two to four days. 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
[2022-01-31] MEDS: PARoxetine 20 mg Tablet PO (17:46)
[2022-01-31 20:30] VITALS: BP 117/70; PULSE 83; RESP 17; TEMP 36.5; O2SAT 100
[2022-01-31] MEDS: quetiapine 25 mg Tablet 50 MG PO (20:40)
[2022-01-31] MEDS: trazodone 50 mg Tablet PO (22:05)
[2022-02-01 06:00] VITALS: BP 99/63; PULSE 80; RESP 16; TEMP 36.9; O2SAT 97
[2022-02-01] MEDS: duloxetine 30 mg Capsule PO (06:14)
[2022-02-01] MEDS: levothyroxine 112 mcg Tablet PO (08:06)
[2022-02-01] MEDS: pantoprazole DR 40 mg Tablet PO (08:06)
[2022-02-01] MEDS: levETIRAcetam 500 mg Tablet PO (08:06)
[2022-02-01] MEDS: CLONazepam 0.5 mg Tablet PO (08:06)
--- NOTE | 2022-02-01 08:10 | PC.NURSE ---
SHIFT ASSESSMENT PT IN DAY ROOM EATING BREAKFAST, NO S/S OF DISTRESS NOTED, CAME TO NURSES STATION FOR SCHEDULED MEDICATIONS, DENIES SI/HI/HALLUCINATIONS AT THIS TIME
[2022-02-01 14:00] VITALS: BP 119/80; PULSE 84; RESP 18; TEMP 36.6; O2SAT 90
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
[2022-02-01 14:57] VITALS: BP 119/80; PULSE 84; RESP 18; TEMP 36.6; O2SAT 90
== END 2022-02-01 15:39 | disposition short-term general hospital (02) | DRG 885 ==
LOC: ER 12:47 → NP 13:15
PROVIDERS: Admitting Provider Psychiatry & Neurology Psychiatry; Emergency Provider Emergency Medicine; PCP Family Medicine; Visit Provider Psychiatry & Neurology Psychiatry
DX: F33.2 Major depressive disorder, recurrent severe without psychotic features (principal); R45.851 Suicidal ideations; F41.1 Generalized anxiety disorder; I10 Essential (primary) hypertension; I25.10 Atherosclerotic heart disease of native coronary artery without angina pectoris; E03.9 Hypothyroidism, unspecified; K21.9 Gastro-esophageal reflux disease without esophagitis; K14.6 Glossodynia; Z95.5 Presence of coronary angioplasty implant and graft; Z90.49 Acquired absence of other specified parts of digestive tract; Z90.710 Acquired absence of both cervix and uterus; Z62.811 Personal history of psychological abuse in childhood; Z87.891 Personal history of nicotine dependence; Z79.899 Other long term (current) drug therapy; Z79.82 Long term (current) use of aspirin; Z79.891 Long term (current) use of opiate analgesic
CPT/HCPCS: 80053; 80306; 80307; 84443; 85025; 96372; 97150; 97165; 99285; J2550; Q0162

== ENCOUNTER 2022-02-02 10:14 | Day surgery (SDC) | payer BC, SELFPAY ==
[2022-02-02 10:35] VITALS: BP 98/78; PULSE 79; RESP 18; TEMP 36.6; O2SAT 99
[2022-02-02] MEDS: sodium chloride 0.9% 1,000 ML 30 ML IV (10:44)
--- NOTE | 2022-02-02 12:01 | ANES.PREANE2 ---
Pre-Anesthetic Assessment Height/Weight: Height 1.63 m Weight 77.111 kg Temp Pulse Resp BP Pulse Ox O2 Del Method 97.8 F 79 18 98/78 99 02/02/22 10:35 02/02/22 10:35 02/02/22 10:35 02/02/22 10:35 02/02/22 10:35 02/02/22 10:35 Preop Diagnosis: epigastric pain Operation Date: 02/02/22 11:45 Proposed Procedures p EGD 07996,R10.13(Not Applicable) - Tacos Colmenares DO Familial anesthetic complications: none Was Beta Holley taken within 24 hours: N/A Was Clonidine taken within 24 hours: N/A Last intake: Intake Last Liquid Date 02/01/22 Last Liquid Time 19:00 Last Solid Date 02/01/22 Last Solid Time 18:00 Last Intake: 19:00 Social No alcohol and No tobacco Exam alert, oriented x 3, clear to auscultation bilaterally and regular rate & rhythm Airway Submandibular: within normal limits Cervical ROM: within normal limits Mallampati: Class II Dentition: full Pulmonary None reported CV/HEM Stable Angina, Coronary Artery Disease, Hypertension and Myocardial Infarction (PTCA 2017. Neg cath 2018) None reported Hepatic None reported GI Gastroesophageal Reflux Disease Metabolic Thyroid Disease Musc/skel Lower Back Pain and Osteoarthritis/DJD Neuropsych Anxiety, Depression and Seizure (last SZ 1 yr ago) Anesthetic Plan ASA status: 3 Anesthesia: MAC Risk of > 500 ml blood loss (7ml/kg in children): No Medications/Allergies Home Medications Medication Instructions Recorded Confirmed Last Taken Type aspirin 81 mg tablet,delayed 81 mg PO DAILY 05/08/19 02/01/22 01/28/22 History release (Adult Low Dose Aspirin) levetiracetam 500 mg tablet 500 mg PO BID 05/08/19 02/01/22 02/02/22 History (Keppra) levothyroxine 112 mcg tablet 112 mcg PO DAILY 11/09/20 02/01/22 02/01/22 History nitroglycerin 0.4 mg sublingual 0.4 mg sublingual Q5M PRN chest 11/09/20 02/01/22 Unknown Rx tablet (Nitrostat) pain #30 tabs pantoprazole 40 mg tablet,delayed 40 mg PO BID abdominal pain 01/19/22 02/01/22 02/01/22 History release (Protonix) cyclobenzaprine 10 mg tablet 10 mg PO BEDTIME PRN Muscle Pain 01/28/22 02/02/22 01/29/22 History clonazepam 0.5 mg disintegrating 0.5 mg PO BID 30 days #60 tabs 02/01/22 02/02/22 02/01/22 Rx tablet duloxetine 20 mg capsule,delayed 20 mg PO DAILY 30 days #30 caps 02/01/22 02/02/22 02/02/22 Rx release paroxetine HCl 20 mg tablet (Paxil) 20 mg PO .qhs 30 days #30 tabs 02/01/22 02/02/22 02/01/22 Rx quetiapine 100 mg tablet (Seroquel) 100 mg PO .QHS #30 tabs 02/01/22 02/02/22 02/01/22 Rx Allergies Allergy/AdvReac Type Severity Reaction Status Date / Time Penicillins Allergy Unknown ALGY-Rash Verified 02/01/22 14:10 prednisone Allergy Unknown ALGY-Rash Verified 02/01/22 14:10 Sulfa (Sulfonamide Allergy Unknown ALGY-Rash Verified 02/01/22 14:10 Antibiotics) Current Medications Generic Name Dose Route Start Last Admin Trade Name Freq PRN Reason Stop Dose Admin Sodium Chloride 1,000 mls @ 30 mls/hr 02/02/22 10:30 02/02/22 10:44 Sodium Chloride 0.9% IV 02/03/22 10:29 30 mls/hr .Q24H JUAN A Administration PFSH Anesthesia Medical History CAD (coronary atherosclerotic disease) Depression GERD (gastroesophageal reflux disease) HTN (hypertension) Hypothyroidism Surgical History Hx of neck surgery S/P cholecystectomy S/P coronary angioplasty S/P hysterectomy S/P sinus surgery Family History Mother CAD (coronary artery disease) Family/Other Stroke Hypertension Other Cancer Social History Smoking and tobacco status: former smoker Alcohol intake: never Marital status: Data Anesthesia Cardiac Studies: No Data to Display
--- NOTE | 2022-02-02 12:28 | W.PM.OPSUD ---
Surgery/Procedure H&P Update DATE OF PROCEDURE: February 02, 2022 DATE H&P PERFORMED: 01/19/22 PREOP DIAGNOSIS: epigastric pain PLANNED PROCEDURE: Operation Date: 02/02/22 11:45 Proposed Procedures p EGD 57037,R10.13(Not Applicable) - Tacos Colmenares DO
[2022-02-02 12:39] VITALS: BP 156/91; PULSE 73; RESP 18; TEMP 36.2; O2SAT 96
[2022-02-02 12:50] VITALS: BP 136/78; PULSE 81; RESP 18; O2SAT 98
--- NOTE | 2022-02-02 14:10 | ANE.PACU2 ---
Inpatient post-anesthesia follow up: Airway intact: Yes Vital signs: Temperature 97.2 F Pulse Rate 81 Respiratory Rate 18 Blood Pressure 136/78 Pulse Oximetry 98 Oxygen Delivery Me thod Room Air Oxygen Flow Rate Fraction of Inspir ed Oxygen Hydration adequate: Yes Nausea and vomiting: No Pain level: 1 Mental status: Baseline
== END 2022-02-02 13:03 | disposition home or self-care (01) ==
PROVIDERS: PCP Family Medicine; Visit Provider Surgery
PROC: 0DJ08ZZ Inspection of Upper Intestinal Tract, Via Natural or Artificial Opening Endoscopic (ICD-10-PCS; CPT 43235; principal; 2022-02-02 11:45)
DX: R10.13 Epigastric pain (principal); K29.50 Unspecified chronic gastritis without bleeding; B96.81 Helicobacter pylori [H. pylori] as the cause of diseases classified elsewhere; I25.10 Atherosclerotic heart disease of native coronary artery without angina pectoris; I10 Essential (primary) hypertension; I25.2 Old myocardial infarction; K21.9 Gastro-esophageal reflux disease without esophagitis; F41.9 Anxiety disorder, unspecified; F32.A Depression, unspecified; Z79.82 Long term (current) use of aspirin; E03.9 Hypothyroidism, unspecified; Z87.891 Personal history of nicotine dependence
CPT/HCPCS: 43239; 88305; J2704; J7030

== ENCOUNTER 2022-05-04 08:06 | Day surgery (SDC) | payer BC, SELFPAY ==
--- NOTE | 2022-05-04 08:15 | W.PM.OPSUD ---
Surgery/Procedure H&P Update DATE OF PROCEDURE: May 04, 2022 DATE H&P PERFORMED: 05/01/22 PREOP DIAGNOSIS: epigastric pain PLANNED PROCEDURE: Operation Date: 05/04/22 09:00 Proposed Procedures p EGD [id number]/r10.13(Not Applicable) - Tacos Colmenares DO
[2022-05-04 08:26] VITALS: BP 130/94; PULSE 90; RESP 18; TEMP 36.4; O2SAT 97
--- NOTE | 2022-05-04 08:30 | ANES.PREANE2 ---
Pre-Anesthetic Assessment Height/Weight: Height 1.63 m Weight 79.379 kg Temp Pulse Resp BP Pulse Ox O2 Del Method 97.5 F L 90 18 130/94 97 05/04/22 08:26 05/04/22 08:26 05/04/22 08:26 05/04/22 08:26 05/04/22 08:26 05/04/22 08:26 Preop Diagnosis: epigastric pain Operation Date: 05/04/22 09:00 Proposed Procedures p EGD [id number]/r10.13(Not Applicable) - Tacos Colmenares DO Familial anesthetic complications: None Was Beta Holley taken within 24 hours: N/A Was Clonidine taken within 24 hours: N/A Last intake: Intake Last Liquid Date 05/03/22 Last Liquid Time 23:59 Last Solid Date 05/03/22 Last Solid Time 23:59 Social No alcohol and No tobacco Exam alert, oriented x 3, clear to auscultation bilaterally and regular rate & rhythm Airway Mallampati: Class I Dentition: other (bridge) CV/HEM Coronary Artery Disease (angioplasty) and Hypertension GI Gastroesophageal Reflux Disease h pylori Neuropsych Seizure Anesthetic Plan ASA status: 3 Anesthesia: MAC Risk of > 500 ml blood loss (7ml/kg in children): No Medications/Allergies Home Medications Medication Instructions Recorded Confirmed Last Taken Type aspirin 81 mg tablet,delayed 81 mg PO DAILY 05/08/19 05/02/22 05/02/22 History release (Adult Low Dose Aspirin) levetiracetam 500 mg tablet 500 mg PO BID 05/08/19 05/02/22 05/04/22 06:45 History (Keppra) levothyroxine 112 mcg tablet 112 mcg PO DAILY 11/09/20 05/02/22 05/04/22 06:45 History nitroglycerin 0.4 mg sublingual 0.4 mg sublingual Q5M PRN chest 11/09/20 05/02/22 Unknown Rx tablet (Nitrostat) pain #30 tabs pantoprazole 40 mg tablet,delayed 40 mg PO BID abdominal pain 01/19/22 05/02/22 05/03/22 History release (Protonix) clonazepam 0.5 mg disintegrating 0.5 mg PO BID 30 days #60 tabs 02/01/22 05/02/22 05/04/22 06:45 Rx tablet duloxetine 20 mg capsule,delayed 20 mg PO DAILY 30 days #30 caps 02/01/22 05/02/22 05/01/22 Rx release triamterene 37.5 1 cap PO DAILY 05/01/22 05/02/22 05/03/22 History mg-hydrochlorothiazide 25 mg capsule zaleplon 10 mg capsule 10 mg PO DAILY 05/01/22 05/02/22 05/03/22 History paroxetine HCl 20 mg tablet (Paxil) 20 mg PO QAM 05/02/22 05/02/22 05/03/22 History Allergies Allergy/AdvReac Type Severity Reaction Status Date / Time Penicillins Allergy Unknown ALGY-Rash Verified 05/02/22 09:03 prednisone Allergy Unknown ALGY-Rash Verified 05/02/22 09:03 Sulfa (Sulfonamide Allergy Unknown ALGY-Rash Verified 05/02/22 09:03 Antibiotics) PFSH Anesthesia Medical History CAD (coronary atherosclerotic disease) Depression GERD (gastroesophageal reflux disease) HTN (hypertension) Hypothyroidism Surgical History Hx of neck surgery S/P cholecystectomy S/P coronary angioplasty S/P hysterectomy S/P sinus surgery Family History Mother CAD (coronary artery disease) Family/Other Stroke Hypertension Other Cancer Social History Smoking and tobacco status: former smoker Alcohol intake: never Marital status: Data Anesthesia Cardiac Studies: No Data to Display
[2022-05-04] MEDS: sodium chloride 0.9% 1,000 ML 30 ML IV (08:35)
[2022-05-04 08:57] VITALS: BP 109/75; PULSE 79; RESP 16; TEMP 36.3; O2SAT 97
--- NOTE | 2022-05-04 14:05 | ANE.PACU2 ---
Inpatient post-anesthesia follow up: Airway intact: Yes Vital signs: Temperature 97.4 F Pulse Rate 79 Respiratory Rate 16 Blood Pressure 109/75 Pulse Oximetry 97 Oxygen Delivery Me thod Room Air Oxygen Flow Rate Fraction of Inspir ed Oxygen Hydration adequate: Yes Nausea and vomiting: No Pain level: 1 Mental status: Baseline
== END 2022-05-04 09:36 | disposition home or self-care (01) ==
PROVIDERS: PCP Family Medicine; Visit Provider Surgery
PROC: 0DJ08ZZ Inspection of Upper Intestinal Tract, Via Natural or Artificial Opening Endoscopic (ICD-10-PCS; CPT 43235; principal; 2022-05-04 09:00)
DX: R13.10 Dysphagia, unspecified (principal); K29.50 Unspecified chronic gastritis without bleeding; B96.81 Helicobacter pylori [H. pylori] as the cause of diseases classified elsewhere; I25.10 Atherosclerotic heart disease of native coronary artery without angina pectoris; I10 Essential (primary) hypertension; K21.9 Gastro-esophageal reflux disease without esophagitis; Z79.82 Long term (current) use of aspirin; F32.A Depression, unspecified; E30.9 Disorder of puberty, unspecified; Z87.891 Personal history of nicotine dependence
CPT/HCPCS: 43239; 88305; J2704; J7030

== ENCOUNTER 2023-08-13 06:00 | Outpatient (RCR) | payer BC, SELFPAY | END 2023-09-03 23:59 | disposition home or self-care (01) | LOC: TPT 06:00 | PROVIDERS: Visit Provider Student in an Organized Health Care Education/Training Program | DX: M25.552 Pain in left hip (principal) | CPT/HCPCS: 97032; 97110; 97162 ==